=== PATIENT | female | born 1975 | race Caucasian/White ===

== ENCOUNTER 2017-05-23 11:28 | Emergency (ER) | payer MEDICAID | END 2017-05-23 11:43 | disposition home or self-care (01) | LOC: E/R 11:28 | DX: J20.9 Acute bronchitis, unspecified (principal) | CPT/HCPCS: 99284; Z7502 ==

== ENCOUNTER 2018-01-19 10:58 | Emergency (ER) | payer MEDICAID ==
[2018-01-19] MEDS: predniSONE 20 MG TAB PO (13:20)
[2018-01-19] MEDS: IPRATROPIUM (NEB) 0.5 MG/2.5 ML AMP NEB (13:34)
[2018-01-19] MEDS: ALBUTEROL 0.083% (NEB) 2.5 MG/3 ML AMP NEB (13:34)
== END 2018-01-19 14:45 | disposition home or self-care (01) ==
LOC: FTE 14:45
DX: R05 Cough (principal)
CPT/HCPCS: 94664; 99283-25